=== PATIENT | male | born 1975 | race Caucasian/White ===

== ENCOUNTER 2017-11-08 20:11 | Emergency (ER) | payer SELFPAY ==
[2017-11-08] MEDS ORDERED: LORazepam TAB(*) 1 MG PO ONE (20:36)
--- NOTE | 2017-11-08 20:44 | ED ---
Substance Abuse/Use - HPI Summary HPI Summary: This patient is a 41 year old M brought in by the [place] [employer] to [facility] with a chief complaint of EtOH intoxication since earlier this evening. The [place] [employer] report that the patient was screaming on a second floor balcony and throwing things. The patient notes that he is from out of town but is temporarily living in the area with his grandparents. The police report the patients grandparents stated the patient has not been taking his medications. The patient says he did not throw anything and he has been taking his medications. Patient reports that he had almost a whole bottle of [place] to drink. The patient rates the pain 0/10 in severity. Symptoms aggravated by nothing. Symptoms alleviated by nothing. Patient denies any injuries or trauma. - History Of Current Complaint Chief Complaint: EDSubstanceAbuse Stated Complaint: 941 Hx Obtained From: Patient, Other: - [place] [employer] Onset/Duration of Drug/ETOH Abuse: Hours Ingestion History: Type/Name Of Drug - EtOH, Amount Ingested - "almost a whole bottle of [place]" Overdose Characteristics: Oral Timing Of Abuse: Binge Use Severity Initially: Mild Severity Currently: Mild Character: Lethargic Aggravating Factor(s): Nothing Alleviating Factor(s): Nothing - Allergies/Home Medications Allergies/Adverse Reactions: Allergies Allergy/AdvReac Type Severity Reaction Status Date / Time haloperidol [From Haldol] Allergy Unknown Verified 11/08/17 20:28 Reaction Details PMH/Surg Hx/FS Hx/Imm Hx Respiratory History: Denies: Hx Chronic Obstructive Pulmonary Disease (COPD) Opthamlomology History: Denies: Hx Legally Blind EENT History: Denies: Hx Deafness Psychiatric History: Reports: Hx Schizophrenia Denies: Hx Eating Disorder - Surgical History Surgery Procedure, Year, and Place: none Infectious Disease History: No Infectious Disease History: Denies: Traveled Outside the [place] in Last 30 Days - Family History Known Family History: Positive: None - Pt denies relevant FHx - Social History Lives: With Family Alcohol Use: Occasionally Substance Use Type: Reports: Other Substance Use Comment - Amount & Last Used: UNKNOWN Smoking Status (MU): Current Every Day Smoker Review of Systems Negative: Fever Negative: Epistaxis Negative: Cough Negative: Vomiting Positive: Slurred Speech All Other Systems Reviewed And Are Negative: Yes Physical Exam - Summary Physical Exam Summary: Appearance: Well-appearing, Well-nourished, lying in bed comfortable Skin: Warm, dry, no obvious rash Eyes: sclera anicteric, no conjunctival pallor ENT: mucous membranes moist Neck: deferred Respiratory: No signs of respiratory distress Cardiovascular: Appears well perfused, pulses are nml Abdomen: deferred Musculoskeletal: Moving all 4 extremities without obvious discomfort Neurological: Awake and alert, mentation is normal, speech is a little slurred and appropriate Psychiatric: affect is normal, does not appear anxious or depressed Triage Information Reviewed: Yes Vital Signs On Initial Exam: Initial Vitals Temp Pulse Resp BP Pulse Ox 98.0 F 130 20 167/99 96 11/08/17 20:20 11/08/17 20:20 11/08/17 20:20 11/08/17 20:20 11/08/17 20:20 Vital Signs Reviewed: Yes Diagnostics - Vital Signs Vital Signs Temp Pulse Resp BP Pulse Ox 11/08/17 20:20 98.0 F 130 20 167/99 96 - Laboratory Lab Statement: Any lab studies that have been ordered have been reviewed, and results considered in the medical decision making process. Course/Dx - Diagnoses Provider Diagnoses: Alcohol intoxication Discharge - Sign-Out/Discharge Documenting (check all that apply): Patient Departure - Discharge Plan Condition: Improved Disposition: HOME Patient Education Materials: Alcohol Intoxication (ED) Referrals: [facility] [Outside] [facility] [Outside] [facility] [Outside] - Billing Disposition and Condition Condition: IMPROVED Disposition: Home - Attestation Statements Document Initiated by Scribe: Yes Documenting Scribe: Kenya Mcclellan Provider For Whom Vicki is Documenting (Include Credential): Dannie Zarate MD Scribe Attestation: Kenya Warren, scribed for Dannie Zarate MD on 11/09/17 at 0547. Scribe Documentation Reviewed: Yes Provider Attestation: The documentation as recorded by the Kenya rothman accurately reflects the service I personally performed and the decisions made by me, Dannie Zarate MD
[2017-11-09 06:24] VITALS: BP 130/74
== END 2017-11-09 06:21 | disposition home or self-care (01) ==
LOC: ED 20:11

== ENCOUNTER 2020-06-27 16:47 | Inpatient (IN) ==
[2020-06-27] MEDS ORDERED: LORazepam 2 mg VIAL 1 ml ONE (16:48)
[2020-06-27] MEDS ORDERED: diphenhydrAMINE 50 MG/ML INJ SYRINGE *CHOA ONE (16:55)
[2020-06-27] MEDS ORDERED: LORAZEPAM 2 MG/ML ONE (16:55)
[2020-06-27] MEDS ORDERED: Haloperidol 5 mg/ml SDV IV/IM 5 MG/ML AMP ONE ×2 (16:55→20:39)
[2020-06-27] MEDS ORDERED: Diazepam INJ CARPUJECT 5 MG/ML ONE (20:39)
[2020-06-27] MEDS ORDERED: Haloperidol 5 mg/ml SDV IV/IM 5 MG/ML AMP IM ONE (20:42)
[2020-06-27] MEDS ORDERED: Diazepam INJ CARPUJECT 5 MG/ML IM ONE (20:42)
[2020-06-28 02:27] LABS: ABS Basophils 0.1 10^3/ul (0-0.2); ABS Eosinophils 0.5 10^3/ul (0-0.6); ABS Lymphocytes 2.8 10^3/ul (1.0-4.8); ABS Monocytes 0.9 10^3/ul (0-0.8); ABS Neutrophils 6.4 10^3/ul (1.5-7.7); Eosinophil % 4.6 %; Hematocrit 44 % (42-52); Lymphocyte % 26.2 %; Mean Corpuscular HGB Conc 34 g/dL (31-36); Mean Corpuscular Hemoglobin 30 pg (27-31); Mean Corpuscular Volume 87 fL (80-94); Mean Platelet Volume 8.7 fL (7.4-10.4); Platelet Count 296 10^3/uL (150-450); Red Blood Count 4.97 10^6 /uL (4.18-5.48); Red Cell Distribution Width 14 % (10-15); White Blood Count 10.7 10^3/uL (3.5-10.8)
[2020-06-28 02:46] LABS: ALT 15 U/L (7-52); AST 34 U/L (13-39); Acetaminophen < 15 mcg/mL; Albumin/Globulin Ratio 1.5 (1-3); Alcohol, S < 10 mg/dL (<10); Alkaline Phosphatase 64 U/L (34-104); Anion Gap 3 mmol/L (2-11); Blood Urea Nitrogen 7 mg/dL (6-24); CO2 Carbon Dioxide 31 mmol/L (22-32); Calcium 8.9 mg/dL (8.6-10.3); Chloride 107 mmol/L (101-111); EGFR African American 107.3 (>60); EGFR Non-African American 88.7 (>60); Globulin 2.7 g/dL (2-4); Glucose 92 mg/dL (70-100); Potassium 3.4 mmol/L (3.5-5.0); Salicylate < 2.50 mg/dL (<30); Sodium 141 mmol/L (135-145); Total Protein 6.7 g/dL (6.4-8.9)
[2020-06-28 03:01] LABS: TSH Ultra Thyroid Stim Horm 2.63 mcIU/mL (0.34-5.60)
[2020-06-28 04:22] VITALS: BP 95/62
[2020-06-28] MEDS: Vitamin THERAPEUTIC TAB PO SCH (09:00)
[2020-06-28] MEDS: Nicotine GUM 2MG FRUIT FLAVOR PO PRN ×3 (13:53→20:29)
[2020-06-29] MEDS: Nicotine GUM 2MG FRUIT FLAVOR PO PRN ×7 (07:26→21:46)
[2020-06-29] MEDS: Vitamin THERAPEUTIC TAB PO SCH (07:27)
[2020-06-29] MEDS: Nicotine PATCH 21 MG/24 HR PATCH TRANSDERM SCH ×2 (09:26→10:26)
[2020-06-29] MEDS: Nicotine Lozenge mini 4 MG LOZNG.MINI MT PRN ×6 (10:01→20:43)
[2020-06-30] MEDS: Nicotine GUM 2MG FRUIT FLAVOR PO PRN ×8 (06:07→21:37)
[2020-06-30] MEDS: Nicotine Lozenge mini 4 MG LOZNG.MINI MT PRN ×7 (06:49→20:37)
[2020-06-30] MEDS: Nicotine PATCH 21 MG/24 HR PATCH TRANSDERM SCH (07:35)
[2020-06-30] MEDS: Vitamin THERAPEUTIC TAB PO SCH (08:39)
[2020-07-01] MEDS: Nicotine GUM 2MG FRUIT FLAVOR PO PRN ×8 (05:17→19:21)
[2020-07-01] MEDS: Nicotine PATCH 21 MG/24 HR PATCH TRANSDERM SCH (06:08)
[2020-07-01] MEDS: Nicotine Lozenge mini 4 MG LOZNG.MINI MT PRN ×7 (06:18→18:47)
[2020-07-01] MEDS: Vitamin THERAPEUTIC TAB PO SCH (07:17)
[2020-07-01] MEDS: Al Hydrox/Mg Hydrox/Simet LIQ 30 ML UDC PO PRN (08:59)
[2020-07-02] MEDS: Nicotine GUM 2MG FRUIT FLAVOR PO PRN ×9 (04:29→21:18)
[2020-07-02] MEDS: Nicotine Lozenge mini 4 MG LOZNG.MINI MT PRN ×8 (06:01→20:25)
[2020-07-02] MEDS: Nicotine PATCH 21 MG/24 HR PATCH TRANSDERM SCH (06:22)
[2020-07-02] MEDS: Vitamin THERAPEUTIC TAB PO SCH (07:39)
[2020-07-03] MEDS: Nicotine GUM 2MG FRUIT FLAVOR PO PRN ×6 (04:03→22:20)
[2020-07-03] MEDS: Nicotine Lozenge mini 4 MG LOZNG.MINI MT PRN ×5 (04:21→21:28)
[2020-07-03] MEDS: Nicotine PATCH 21 MG/24 HR PATCH TRANSDERM SCH ×2 (04:59→06:33)
[2020-07-03] MEDS: Vitamin THERAPEUTIC TAB PO SCH ×2 (06:31→08:41)
[2020-07-03] MEDS ORDERED: Nicotine GUM 2MG FRUIT FLAVOR PO PRN (08:50)
[2020-07-03] MEDS: Al Hydrox/Mg Hydrox/Simet LIQ 30 ML UDC PO PRN (18:01)
[2020-07-04] MEDS: Nicotine Lozenge mini 4 MG LOZNG.MINI MT PRN ×4 (03:41→23:15)
[2020-07-04] MEDS: Nicotine GUM 2MG FRUIT FLAVOR PO PRN ×4 (04:25→22:53)
[2020-07-04] MEDS: Nicotine PATCH 21 MG/24 HR PATCH TRANSDERM SCH (06:30)
[2020-07-04] MEDS: Vitamin THERAPEUTIC TAB PO SCH (07:15)
[2020-07-05] MEDS: Nicotine GUM 2MG FRUIT FLAVOR PO PRN ×3 (04:20→16:39)
[2020-07-05] MEDS: Nicotine PATCH 21 MG/24 HR PATCH TRANSDERM SCH (06:37)
[2020-07-05] MEDS: Nicotine Lozenge mini 4 MG LOZNG.MINI MT PRN ×3 (06:39→18:28)
[2020-07-05] MEDS: Vitamin THERAPEUTIC TAB PO SCH (07:20)
[2020-07-06] MEDS: Nicotine Lozenge mini 4 MG LOZNG.MINI MT PRN ×3 (04:34→19:16)
[2020-07-06] MEDS: Nicotine GUM 2MG FRUIT FLAVOR PO PRN (04:35)
[2020-07-06] MEDS: Nicotine PATCH 21 MG/24 HR PATCH TRANSDERM SCH (06:22)
[2020-07-06] MEDS: Vitamin THERAPEUTIC TAB PO SCH (08:15)
[2020-07-06] MEDS ORDERED: Nicotine GUM 4MG FRUIT FLAVOR PO PRN (12:20)
[2020-07-06] MEDS: Nicotine GUM 4MG FRUIT FLAVOR PO PRN ×3 (12:30→20:53)
[2020-07-07] MEDS: Nicotine Lozenge mini 4 MG LOZNG.MINI MT PRN ×4 (05:43→20:24)
[2020-07-07] MEDS: Nicotine GUM 4MG FRUIT FLAVOR PO PRN ×5 (05:43→23:23)
[2020-07-07] MEDS: Vitamin THERAPEUTIC TAB PO SCH (07:15)
[2020-07-07] MEDS: Nicotine PATCH 21 MG/24 HR PATCH TRANSDERM SCH (07:16)
[2020-07-08] MEDS: Nicotine Lozenge mini 4 MG LOZNG.MINI MT PRN ×5 (00:40→19:45)
[2020-07-08] MEDS: Nicotine GUM 4MG FRUIT FLAVOR PO PRN ×4 (06:35→18:33)
[2020-07-08] MEDS: Nicotine PATCH 21 MG/24 HR PATCH TRANSDERM SCH (06:59)
[2020-07-08] MEDS: Vitamin THERAPEUTIC TAB PO SCH (10:00)
[2020-07-09] MEDS: Nicotine Lozenge mini 4 MG LOZNG.MINI MT PRN ×4 (06:29→20:56)
[2020-07-09] MEDS: Nicotine GUM 4MG FRUIT FLAVOR PO PRN ×4 (06:29→19:58)
[2020-07-09] MEDS: Nicotine PATCH 21 MG/24 HR PATCH TRANSDERM SCH (07:20)
[2020-07-09] MEDS: Vitamin THERAPEUTIC TAB PO SCH (09:27)
[2020-07-10] MEDS: Nicotine GUM 4MG FRUIT FLAVOR PO PRN ×5 (02:47→18:27)
[2020-07-10] MEDS: Nicotine Lozenge mini 4 MG LOZNG.MINI MT PRN ×5 (02:53→20:50)
[2020-07-10] MEDS: Nicotine PATCH 21 MG/24 HR PATCH TRANSDERM SCH (06:01)
[2020-07-10] MEDS: Vitamin THERAPEUTIC TAB PO SCH (13:07)
[2020-07-11] MEDS: Nicotine GUM 4MG FRUIT FLAVOR PO PRN ×5 (01:41→20:15)
[2020-07-11] MEDS: Nicotine Lozenge mini 4 MG LOZNG.MINI MT PRN ×4 (02:20→17:20)
[2020-07-11] MEDS: Nicotine PATCH 21 MG/24 HR PATCH TRANSDERM SCH (07:46)
[2020-07-11] MEDS: Vitamin THERAPEUTIC TAB PO SCH (12:31)
[2020-07-12] MEDS: Nicotine PATCH 21 MG/24 HR PATCH TRANSDERM SCH ×2 (05:51→06:02)
[2020-07-12] MEDS: Nicotine GUM 4MG FRUIT FLAVOR PO PRN ×7 (05:52→20:06)
[2020-07-12 08:01] LABS: ABS Eosinophils 0.2 10^3/ul (0-0.6); ABS Monocytes 0.5 10^3/ul (0-0.8); ABS Neutrophils 3.7 10^3/ul (1.5-7.7); Eosinophil % 3.4 %; Hematocrit 46 % (42-52); Hemoglobin 15.6 g/dL (14.0-18.0); Mean Corpuscular HGB Conc 34 g/dL (31-36); Mean Corpuscular Hemoglobin 30 pg (27-31); Mean Corpuscular Volume 86 fL (80-94); Mean Platelet Volume 8.4 fL (7.4-10.4); Nucleated Red Blood Cells % 0.1; Platelet Count 303 10^3/uL (150-450); Red Blood Count 5.27 10^6 /uL (4.18-5.48); Red Cell Distribution Width 14 % (10-15); White Blood Count 6.4 10^3/uL (3.5-10.8)
[2020-07-12 08:17] LABS: HDL Cholesterol 45.7 mg/dL
[2020-07-12] MEDS: Nicotine Lozenge mini 4 MG LOZNG.MINI MT PRN ×2 (08:24→10:40)
[2020-07-12] MEDS: Vitamin THERAPEUTIC TAB PO SCH (10:23)
[2020-07-12] MEDS: Nicotine Lozenge mini 2 MG LOZNG.MINI MT PRN ×2 (14:05→18:03)
[2020-07-13] MEDS: Nicotine Lozenge mini 2 MG LOZNG.MINI MT PRN ×5 (05:30→19:51)
[2020-07-13] MEDS: Nicotine GUM 4MG FRUIT FLAVOR PO PRN ×8 (05:30→22:03)
[2020-07-13] MEDS: Nicotine PATCH 14 MG/24 HR PATCH TRANSDERM SCH (07:37)
[2020-07-13] MEDS: Vitamin THERAPEUTIC TAB PO SCH (09:52)
[2020-07-14] MEDS: Nicotine GUM 4MG FRUIT FLAVOR PO PRN ×8 (05:37→20:30)
[2020-07-14] MEDS: Nicotine Lozenge mini 2 MG LOZNG.MINI MT PRN ×4 (05:37→20:28)
[2020-07-14] MEDS: Nicotine PATCH 14 MG/24 HR PATCH TRANSDERM SCH (07:21)
[2020-07-14] MEDS: Vitamin THERAPEUTIC TAB PO SCH (10:48)
[2020-07-15] MEDS: Nicotine GUM 4MG FRUIT FLAVOR PO PRN ×7 (06:52→19:46)
[2020-07-15] MEDS: Nicotine PATCH 14 MG/24 HR PATCH TRANSDERM SCH (07:42)
[2020-07-15] MEDS: Nicotine Lozenge mini 2 MG LOZNG.MINI MT PRN ×3 (07:43→17:17)
[2020-07-15] MEDS: Vitamin THERAPEUTIC TAB PO SCH (07:44)
[2020-07-16] MEDS: Nicotine GUM 4MG FRUIT FLAVOR PO PRN ×6 (06:22→19:10)
[2020-07-16] MEDS: Nicotine Lozenge mini 2 MG LOZNG.MINI MT PRN ×3 (07:23→17:00)
[2020-07-16] MEDS: Nicotine PATCH 14 MG/24 HR PATCH TRANSDERM SCH (07:23)
[2020-07-16] MEDS: Vitamin THERAPEUTIC TAB PO SCH (09:11)
[2020-07-17] MEDS: Nicotine GUM 4MG FRUIT FLAVOR PO PRN ×9 (05:00→22:25)
[2020-07-17] MEDS: Nicotine PATCH 14 MG/24 HR PATCH TRANSDERM SCH (07:14)
[2020-07-17] MEDS: Nicotine Lozenge mini 2 MG LOZNG.MINI MT PRN ×4 (07:14→20:29)
[2020-07-17] MEDS: Vitamin THERAPEUTIC TAB PO SCH (10:56)
[2020-07-18] MEDS: Nicotine GUM 4MG FRUIT FLAVOR PO PRN ×8 (06:20→22:45)
[2020-07-18] MEDS: Nicotine Lozenge mini 2 MG LOZNG.MINI MT PRN ×4 (07:20→20:38)
[2020-07-18] MEDS: Nicotine PATCH 14 MG/24 HR PATCH TRANSDERM SCH (07:20)
[2020-07-18] MEDS: Vitamin THERAPEUTIC TAB PO SCH (07:21)
[2020-07-19] MEDS: Nicotine Lozenge mini 2 MG LOZNG.MINI MT PRN ×4 (07:05→19:36)
[2020-07-19] MEDS: Nicotine GUM 4MG FRUIT FLAVOR PO PRN ×7 (07:05→21:47)
[2020-07-19] MEDS: Nicotine PATCH 14 MG/24 HR PATCH TRANSDERM SCH (07:05)
[2020-07-19] MEDS: Vitamin THERAPEUTIC TAB PO SCH (07:07)
[2020-07-20] MEDS: Nicotine Lozenge mini 2 MG LOZNG.MINI MT PRN ×5 (05:34→23:12)
[2020-07-20] MEDS: Nicotine GUM 4MG FRUIT FLAVOR PO PRN ×8 (05:34→23:12)
[2020-07-20] MEDS: Nicotine PATCH 14 MG/24 HR PATCH TRANSDERM SCH (07:01)
[2020-07-20] MEDS: Vitamin THERAPEUTIC TAB PO SCH (08:06)
[2020-07-21] MEDS: Nicotine GUM 4MG FRUIT FLAVOR PO PRN ×8 (00:50→20:06)
[2020-07-21] MEDS: Nicotine PATCH 14 MG/24 HR PATCH TRANSDERM SCH (06:59)
[2020-07-21] MEDS: Nicotine Lozenge mini 2 MG LOZNG.MINI MT PRN ×4 (07:00→20:06)
[2020-07-21] MEDS: Vitamin THERAPEUTIC TAB PO SCH (07:01)
[2020-07-21] MEDS: OLANzapine 5 mg TAB*ODT PO SCH (11:25)
[2020-07-22] MEDS: Nicotine PATCH 14 MG/24 HR PATCH TRANSDERM SCH ×2 (06:50→09:46)
[2020-07-22] MEDS: Nicotine Lozenge mini 2 MG LOZNG.MINI MT PRN ×4 (06:51→18:07)
[2020-07-22] MEDS: Vitamin THERAPEUTIC TAB PO SCH (09:39)
[2020-07-22] MEDS: OLANzapine 5 mg TAB*ODT PO SCH (09:39)
[2020-07-22] MEDS: Nicotine GUM 4MG FRUIT FLAVOR PO PRN ×6 (09:39→20:53)
[2020-07-23] MEDS: Nicotine Lozenge mini 2 MG LOZNG.MINI MT PRN ×4 (06:14→20:15)
[2020-07-23] MEDS: Nicotine GUM 4MG FRUIT FLAVOR PO PRN ×5 (06:14→18:53)
[2020-07-23] MEDS: Nicotine PATCH 14 MG/24 HR PATCH TRANSDERM SCH (07:23)
[2020-07-23] MEDS: OLANzapine 5 mg TAB*ODT PO SCH (09:13)
[2020-07-23] MEDS: Vitamin THERAPEUTIC TAB PO SCH (09:14)
[2020-07-24] MEDS: Nicotine PATCH 14 MG/24 HR PATCH TRANSDERM SCH ×2 (06:31→07:33)
[2020-07-24] MEDS: Nicotine GUM 4MG FRUIT FLAVOR PO PRN ×7 (06:31→20:23)
[2020-07-24] MEDS: Vitamin THERAPEUTIC TAB PO SCH (08:01)
[2020-07-24] MEDS: Nicotine Lozenge mini 2 MG LOZNG.MINI MT PRN ×4 (08:01→20:20)
[2020-07-24] MEDS: OLANzapine 5 mg TAB*ODT PO SCH (08:01)
[2020-07-25] MEDS: Nicotine GUM 4MG FRUIT FLAVOR PO PRN ×9 (03:00→23:05)
[2020-07-25] MEDS: Nicotine PATCH 14 MG/24 HR PATCH TRANSDERM SCH (07:50)
[2020-07-25] MEDS: OLANzapine 5 mg TAB*ODT PO SCH (07:50)
[2020-07-25] MEDS: Vitamin THERAPEUTIC TAB PO SCH (07:50)
[2020-07-25] MEDS: Nicotine Lozenge mini 2 MG LOZNG.MINI MT PRN ×4 (07:52→21:03)
[2020-07-26] MEDS: Nicotine GUM 4MG FRUIT FLAVOR PO PRN ×7 (01:21→19:02)
[2020-07-26] MEDS: Nicotine Lozenge mini 2 MG LOZNG.MINI MT PRN ×5 (01:21→20:19)
[2020-07-26] MEDS: Nicotine PATCH 14 MG/24 HR PATCH TRANSDERM SCH (07:42)
[2020-07-26] MEDS: OLANzapine 5 mg TAB*ODT PO SCH (07:42)
[2020-07-26] MEDS: Vitamin THERAPEUTIC TAB PO SCH (07:42)
[2020-07-27] MEDS: Nicotine GUM 4MG FRUIT FLAVOR PO PRN ×8 (04:45→20:14)
[2020-07-27] MEDS: Nicotine Lozenge mini 2 MG LOZNG.MINI MT PRN ×4 (04:45→19:28)
[2020-07-27] MEDS: Nicotine PATCH 14 MG/24 HR PATCH TRANSDERM SCH (07:46)
[2020-07-27] MEDS: Vitamin THERAPEUTIC TAB PO SCH (07:47)
[2020-07-27] MEDS: OLANzapine 5 mg TAB*ODT PO SCH (07:47)
[2020-07-28] MEDS: Nicotine PATCH 14 MG/24 HR PATCH TRANSDERM SCH (08:06)
[2020-07-28] MEDS: OLANzapine 5 mg TAB*ODT PO SCH (08:07)
[2020-07-28] MEDS: Vitamin THERAPEUTIC TAB PO SCH (08:07)
[2020-07-28] MEDS: Nicotine GUM 4MG FRUIT FLAVOR PO PRN (08:08)
[2020-07-28] MEDS: Nicotine Lozenge mini 2 MG LOZNG.MINI MT PRN (08:08)
== END 2020-07-28 09:30 | DRG 885 ==
LOC: ED 16:47 → BSU 06-28 04:15 → ED 06-28 04:20 → BSU 07-08 11:19
PROVIDERS: ADMIT Psychiatry & Neurology Psychiatry; ATTEND Psychiatry & Neurology Psychiatry